=== PATIENT | female | born 1940 | race Hispanic/Latino ===

== ENCOUNTER 2019-09-07 10:22 | Outpatient (CLI) | payer MEDICARE ==
--- NOTE | 2019-09-07 10:44 | RAD ---
2 view chest: [09/07/2019] Comparison:09/10/2015 HISTORY: Shortness of breath FINDINGS: There is prominent stable elevation of the left hemidiaphragm with increased density in the left lung base limiting detailed assessment of the left lower lobe. Right lung appears clear. No pneumothorax. Heart and mediastinal contours are stable. Findings within the left base could be best assessed with CT if clinically warranted. IMPRESSION: Stable marked elevation of the left hemidiaphragm. Associated hiatal hernia is difficult to exclude. There has been no significant interval change when compared to the prior study.
== END 2019-09-07 10:23 | disposition home or self-care (01) ==
LOC: RAD 10:22
PROVIDERS: ATTEND Internal Medicine
DX: R06.00 Dyspnea, unspecified (principal); J98.6 Disorders of diaphragm
CPT/HCPCS: 71046

== ENCOUNTER 2023-09-13 10:27 | Outpatient (CLI) | payer MEDICARE | END 2023-09-13 10:28 | disposition home or self-care (01) | LOC: MRI 10:27 | PROVIDERS: ATTEND Family Medicine | DX: M47.26 Other spondylosis with radiculopathy, lumbar region (principal); M48.56XD Collapsed vertebra, not elsewhere classified, lumbar region, subsequent encounter for fracture with routine healing | CPT/HCPCS: 72148 ==

== ENCOUNTER 2024-06-02 09:52 | Outpatient (CLI) | payer MEDICARE | END 2024-06-02 09:53 | disposition home or self-care (01) | LOC: BICMAMMO 09:52 | PROVIDERS: ATTEND Family Medicine | DX: Z78.0 Asymptomatic menopausal state (principal); M85.88 Other specified disorders of bone density and structure, other site | CPT/HCPCS: 77080 ==